=== PATIENT | female | born 1985 ===

== ENCOUNTER 2017-12-25 19:55 | Emergency (ER) | payer MEDICAID ==
--- NOTE | 2017-12-25 20:40 | ED PDOC ---
Arrival/HPI - General Chief Complaint: Groin Pain Time Seen by Provider: 12/25/17 20:27 Historian: Patient - History of Present Illness Narrative History of Present Illness (Text): 12/25/17 20:37 32-year-old female presents today with a sharp pain to the left side of the vagina. Patient states pain started yesterday. Patient states she's noticed slight swelling to the area. Patient denies fevers or chills. Denies vaginal bleeding or vaginal discharge. Patient denies abdominal pain. No nausea or vomiting. Patient denies urinary symptoms. No fevers or chills. Patient denies vaginal lesions.No other complaints Time/Duration: Other (yesterday) Symptom Onset: Sudden Symptom Course: Unchanged Quality: Aching, Stabbing Severity Level: 4 Past Medical History - Provider Review Nursing Documentation Reviewed: Yes - Travel History Have you recently traveled outside [place] w/in the past 3 mons?: No - Infectious Disease Hx of Infectious Diseases: None - Psychiatric Hx Substance Use: No Family/Social History - Physician Review Nursing Documentation Reviewed: Yes Family/Social History: Unknown Family HX Smoking Status: Never Smoked Hx Alcohol Use: No Hx Substance Use: No Allergies/Home Meds Allergies/Adverse Reactions: Allergies No Known Allergies Allergy (Verified 12/25/17 20:11) Review of Systems - Review of Systems Constitutional: absent: Fatigue, Fevers Respiratory: absent: SOB, Cough Cardiovascular: absent: Chest Pain, Palpitations Gastrointestinal: absent: Abdominal Pain, Nausea, Vomiting Genitourinary Female: absent: Dysuria, Frequency, Hematuria, Vaginal Bleeding, Vaginal Discharge Musculoskeletal: absent: Arthralgias, Back Pain, Neck Pain Skin: absent: Pruritis Neurological: absent: Headache, Dizziness Psychiatric: absent: Anxiety, Depression Physical Exam Vital Signs Reviewed: Yes Temperature: Afebrile Blood Pressure: Normal Pulse: Regular Respiratory Rate: Normal Appearance: Positive for: Well-Appearing, Non-Toxic, Comfortable Pain Distress: None Mental Status: Positive for: Alert and Oriented X 3 - Systems Exam Head: Present: Atraumatic Mouth: Present: Moist Mucous Membranes Neck: Present: Normal Range of Motion Respiratory/Chest: Present: Clear to Auscultation, Good Air Exchange. No: Respiratory Distress, Accessory Muscle Use Cardiovascular: Present: Regular Rate and Rhythm, Normal S1, S2. No: Murmurs Abdomen: No: Tenderness, Distention, Rebound, Guarding Genitourinary/Pelvic Exam: Present: Other (chaparoned by Nura GUAJARDO EMT). No: Normal External Genitalia (+ ttp over inferior aspect of the left side of the labia approxiately at the location of the bartholins gland. no erythema; no fluctuance. no swelling. ), Vaginal Discharge, Vaginal Bleeding, Vaginal Lesions , Adenexal Tenderness, Adenexal Mass, Cervical Motion Tendernes, Odor Back: Present: Normal Inspection. No: CVA Tenderness, Midline Tenderness, Paraspinal Tenderness Upper Extremity: Present: Normal ROM Lower Extremity: Present: Normal ROM Neurological: Present: GCS=15, Speech Normal Skin: Present: Warm, Dry, Normal Color. No: Rashes Psychiatric: Present: Alert, Oriented x 3 Medical Decision Making ED Course and Treatment: 12/25/17 20:56 32yr old female with 1 day history of sharp pain to the left lower labia approximately at the bartholins gland. no abscess/cyst noted at present time. vitals stable. pt in no distress. will start patient on abx. advised f/u with [employer]. advised immediate return if symptoms worsen,persist or if new symptoms develop. bactrim keflex toradol Patient verbalizes understanding of discharge instructions and need for immediate followup. all aspects of this case were discussed the attending of record. Impression: Vaginal irritation, Rule out Bartholin's gland early abscess/cyst Motrin every 6 hours as needed for pain Bactrim 1 tablet twice daily 7 days Keflex; 1 capsule 4 times daily 7 days warm soaks/sitz bath Follow-up with the scrap baler within the next 2 days Return immediately if symptoms worsen persist or if new concerning symptoms develop Disposition/Present on Arrival - Present on Arrival Any Indicators Present on Arrival: No History of DVT/PE: No History of Uncontrolled Diabetes: No Urinary Catheter: No History of Decub. Ulcer: No History Surgical Site Infection Following: None - Disposition Have Diagnosis and Disposition been Completed?: Yes Diagnosis: Inflammation of labium, Pain in vulva Disposition: HOME/ ROUTINE Disposition Time: 21:07 Patient Plan: Discharge Condition: GOOD Discharge Instructions (ExitCare): Bartholin's Gland Cyst Additional Instructions: Motrin every 6 hours as needed for pain Bactrim 1 tablet twice daily 7 days Keflex; 1 capsule 4 times daily 7 days warm soaks/sitz bath Follow-up with the scrap baler within the next 2 days Return immediately if symptoms worsen persist or if new concerning symptoms develop Prescriptions: Cephalexin [Keflex] 500 mg PO QID #28 capsule Ibuprofen [Motrin] 600 mg PO Q6H PRN #20 tab PRN Reason: pain/fever reduction Sulfamethoxazole/Trimethoprim [Bactrim DS 800 mg-160 mg] 1 tab PO BID #14 tab Referrals: Princess Casarez MD [Primary Care Provider] - Follow up with primary Manas Tyson DO [Staff Provider] - Follow up with primary Lorenzo Marroquin MD [Staff Provider] - Follow up with primary Travis Sepulveda MD [Staff Provider] - [facility] [Outside] - Follow up with primary Forms: [employer] (Romanian), WORK NOTE
[2017-12-25 20:58] VITALS: BP 128/78; PULSE 66; RESP 17; O2SAT 100
[2017-12-25] MEDS ORDERED: Tmp-Smz 800 mg-160 mg DS Tab PO STA (20:59)
[2017-12-26 02:01] VITALS: TEMP 98.4
== END 2017-12-25 21:35 | disposition home or self-care (01) ==
LOC: ED 19:55
DX: N76.0 Acute vaginitis (principal); R10.2 Pelvic and perineal pain
CPT/HCPCS: 96372; 99285; J1885

== ENCOUNTER 2018-08-27 14:27 | Emergency (ER) | payer MEDICAID, OTHER ==
[2018-08-27 14:40] VITALS: BMI 22.6
[2018-08-27 14:44] VITALS: RESP 16; O2SAT 99
--- NOTE | 2018-08-27 15:06 | ED PDOC ---
Arrival/HPI - General Chief Complaint: Female Genitourinary Time Seen by Provider: 08/27/18 14:53 Historian: Patient - History of Present Illness Narrative History of Present Illness (Text): 08/27/18 15:05 32 year old female, who presents to the emergency department complaining of abscess on the left perineum region, since yesterday. Patient denies drainage. LNMP was 5 days ago. She denies fevers, chills, headache, dizziness, chest pain, shortness of breath, dyspnea on exertion, cough, abdominal pain, nausea, vomiting, diarrhea, back pain, neck pain, or any other complaint. Symptom Course: Unchanged Activities at Onset: Light Context: Home Past Medical History - Provider Review Nursing Documentation Reviewed: Yes - Infectious Disease Hx of Infectious Diseases: None - Psychiatric Hx Substance Use: No - Anesthesia Hx Anesthesia: No Family/Social History - Physician Review Nursing Documentation Reviewed: Yes Family/Social History: No Known Family HX Smoking Status: Never Smoked Hx Alcohol Use: No Hx Substance Use: No Allergies/Home Meds Allergies/Adverse Reactions: Allergies No Known Allergies Allergy (Verified 07/02/18 10:37) Review of Systems - Physician Review All systems were reviewed & negative as marked: Yes - Review of Systems Constitutional: absent: Fevers Respiratory: absent: Cough Gastrointestinal: absent: Abdominal Pain, Diarrhea, Nausea Genitourinary Female: absent: Vaginal Bleeding, Vaginal Discharge Musculoskeletal: absent: Back Pain, Neck Pain Skin: Abscess (left perineum region) Neurological: absent: Headache, Dizziness Physical Exam Vital Signs Reviewed: Yes Vital Signs Temp Pulse Resp BP Pulse Ox 08/27/18 14:28 99 F 88 16 133/73 99 Temperature: Afebrile Blood Pressure: Normal Pulse: Regular Respiratory Rate: Normal Appearance: Positive for: Well-Appearing, Non-Toxic, Comfortable Pain Distress: None Mental Status: Positive for: Alert and Oriented X 3 - Systems Exam Head: Present: Atraumatic, Normocephalic Pupils: Present: PERRL Extroacular Muscles: Present: EOMI Conjunctiva: Present: Normal Mouth: Present: Moist Mucous Membranes Neck: Present: Normal Range of Motion Respiratory/Chest: Present: Clear to Auscultation, Good Air Exchange. No: Respiratory Distress, Accessory Muscle Use Cardiovascular: Present: Regular Rate and Rhythm, Normal S1, S2. No: Murmurs Abdomen: No: Tenderness, Distention, Peritoneal Signs Back: Present: Normal Inspection Upper Extremity: Present: Normal Inspection. No: Cyanosis, Edema Lower Extremity: Present: Normal Inspection. 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 No: Rashes Psychiatric: Present: Alert, Oriented x 3, Normal Insight, Normal Concentration Medical Decision Making ED Course and Treatment: 08/27/18 15:05 Impression: 32 year old female who presents to the emergency department complaining of abscess in the left perineum region. Plan: -- Reassess and disposition Prior Visits: Notes and results from previous visits were reviewed. Progress Notes: 08/27/18 16:06 Patient will be discharged home with clindamycin, Motrin, and was instructed to peform warm compresses 3 times a day to the area. Instructed patient to follow up with MAINTENANCE RE[employer] credit [employer] examiner DR. Marroquin or return to the ER if symptoms worsen. Patient agrees with plan. Patient stable for discharge. All questions answered. - Scribe Statement The provider has reviewed the documentation as recorded by the Scribe Toyin Wong Provider Scribe Attestation: All medical record entries made by the Scribe were at my direction and personally dictated by me. I have reviewed the chart and agree that the record accurately reflects my personal performance of the history, physical exam, medical decision making, and the department course for this patient. I have also personally directed, reviewed, and agree with the discharge instructions and disposition. Disposition/Present on Arrival - Present on Arrival History of DVT/PE: No History of Uncontrolled Diabetes: No Urinary Catheter: No History of Decub. Ulcer: No History Surgical Site Infection Following: None - Disposition Diagnosis: Abscess Disposition: HOME/ ROUTINE Condition: GOOD Discharge Instructions (ExitCare): Skin Abscess Additional Instructions: Follow up with Dr Marroquin as soon as possible. Take Motrin and clindamycin as directed Apply warm compress three times a day Prescriptions: Clindamycin [Cleocin] 300 mg PO QID 7 Days #28 cap Ibuprofen [Motrin] 600 mg PO Q6 5 Days #20 tab Referrals: Lorenzo Marroquin MD [Staff Provider] - Follow up with primary Forms: [employer] (Paraguayan)
[2018-08-27 16:45] VITALS: BP 103/74; PULSE 80; TEMP 98.3
== END 2018-08-27 16:40 | disposition home or self-care (01) ==
LOC: ED 14:27
DX: L02.215 Cutaneous abscess of perineum (principal)

== ENCOUNTER 2018-12-29 10:09 | Emergency (ER) | payer OTHER ==
[2018-12-29 10:22] VITALS: BMI 23.5
[2018-12-29 10:23] VITALS: RESP 18; TEMP 98.5; O2SAT 99
[2018-12-29 11:37] LABS: BASO # 0.02 K/mm3 (0.0-2.0); BASO % 0.2 % (0.0-3.0); EOS % 0.1 % (1.5-5.0); HEMOGLOBIN 12.4 g/dL (12.0-16.0); LYMPH # 3.3 (1.2-3.4); MEAN CELL VOLUME 91.7 fl (80.0-105.0); MEAN CORPUSCULAR HEMOGLOBIN 30.3 pg (25.0-35.0); MEAN CORPUSCULAR HGB CONC 33.1 g/dl (31.0-37.0); MEAN PLATELET VOLUME 9.5 fl (7.0-11.0); MONO # 0.6 (0.1-0.6); MONO % 5.4 % (1.0-6.0); RBC 4.09 10^6/uL (3.5-6.1); RED CELL DISTRIBUTION WIDTH 12.7 % (11.5-14.5); WHITE BLOOD COUNT 11.7 10^3/uL (4.5-11.0)
[2018-12-29 11:41] LABS: PH,URINE 6.5 (4.7-8.0); URINE BILIRUBIN NEGATIVE (NEGATIVE); URINE BLOOD NEGATIVE (NEGATIVE); URINE GLUCOSE (UA) NEGATIVE (NEGATIVE); URINE LEUKOCYTE ESTERASE TRACE Leu/uL (NEGATIVE); URINE PROTEIN NEGATIVE mg/dL (<30 mg/dL); URINE UROBILINOGEN 0.2 E.U./dL (<1 E.U./dL)
[2018-12-29 11:42] LABS: URINE APPEARANCE CLEAR (CLEAR); URINE COLOR YELLOW (YELLOW)
[2018-12-29 11:46] LABS: ALB/GLOB RATIO 1.1 (1.1-1.8); ALBUMIN 4.3 g/dL (3.0-4.8); ALT/SGPT 18 U/L (7-56); AST/SGOT 21 U/L (14-36); BLOOD UREA NITROGEN 14 mg/dL (7-21); CALCIUM 9.1 mg/dL (8.4-10.5); GFR NON-AFRICAN AMERICAN > 60
[2018-12-29 11:47] LABS: URINE RBC 0 - 2 /hpf (0-2)
[2018-12-29 11:48] LABS: URINE BACTERIA MANY /hpf
--- NOTE | 2018-12-29 11:58 | ED PDOC ---
Arrival/HPI - General Chief Complaint: GI Problem Time Seen by Provider: 12/29/18 10:10 Historian: Patient - History of Present Illness Narrative History of Present Illness (Text): 33 year old F w/ no significant PMH presenting to the Emergency Room with 1 day history of epigastric abdominal pain. She reports associated watery diarrhea, nausea and emesis after ingesting a egg and potato sandwich yesterday. She denies taking any medication for her symptoms and denies any radiation of her abdominal pain to other regions of her body. She reports her LMP on 12/19/18. She denies chest pain, shortness of breath, dizziness, syncopal episodes, neck pain, back pain, dysuria, or hematuria at this time. Time/Duration: 24 hours Symptom Onset: Gradual Symptom Course: Unchanged Quality: Aching Activities at Onset: Eating Context: Home Past Medical History - Provider Review Nursing Documentation Reviewed: Yes - Travel History Have you recently traveled outside [place] w/in the past 3 mons?: No - Infectious Disease Hx of Infectious Diseases: None - Psychiatric Hx Substance Use: No - Anesthesia Hx Anesthesia: No Family/Social History - Physician Review Nursing Documentation Reviewed: Yes Family/Social History: Unknown Family HX Smoking Status: Never Smoked Hx Alcohol Use: No Hx Substance Use: No Allergies/Home Meds Allergies/Adverse Reactions: Allergies No Known Allergies Allergy (Verified 12/29/18 10:22) Review of Systems - Physician Review All systems were reviewed & negative as marked: Yes - Review of Systems Gastrointestinal: Abdominal Pain, Diarrhea, Nausea, Vomiting. absent: Stool Changes Genitourinary Female: absent: Dysuria, Frequency, Hematuria Physical Exam Vital Signs Reviewed: Yes Vital Signs Temp Pulse Resp BP Pulse Ox 12/29/18 10:23 98.5 F 62 18 118/82 99 Temperature: Afebrile Blood Pressure: Normal Pulse: Regular Respiratory Rate: Normal Appearance: Positive for: Well-Appearing, Non-Toxic, Comfortable Mental Status: Positive for: Alert and Oriented X 3 - Systems Exam Head: Present: Atraumatic, Normocephalic Pupils: Present: PERRL Extroacular Muscles: Present: EOMI Conjunctiva: Present: Normal Mouth: Present: Moist Mucous Membranes Neck: Present: Normal Range of Motion Respiratory/Chest: Present: Clear to Auscultation, Good Air Exchange. No: Respiratory Distress Cardiovascular: Present: Regular Rate and Rhythm, Normal S1, S2 Abdomen: Present: Tenderness (epigastric tenderness), Normal Bowel Sounds. No: Distention, Peritoneal Signs Neurological: Present: Speech Normal, Motor Func Grossly Intact, Normal Sensory Function Psychiatric: Present: Alert, Oriented x 3, Normal Insight, Normal Concentration Medical Decision Making ED Course and Treatment: 12/29/18 12:01 Impression 33 year old F w/ 1 day h/o abdominal pain, nausea, emesis and diarrhea Plan --Labs --Reglan --Toradol --Urinanlysis --POC urine --Reassess & disposition Progress Notes - Lab Interpretations Lab Results: Total Bilirubin 0.4 mg/dL (0.2-1.3) 12/29/18 11:08 AST 21 U/L (14-36) 12/29/18 11:08 ALT 18 U/L (7-56) 12/29/18 11:08 Alkaline Phosphatase 63 U/L (38-126) 12/29/18 11:08 Total Protein 8.0 g/dL (5.8-8.3) 12/29/18 11:08 Albumin 4.3 g/dL (3.0-4.8) 12/29/18 11:08 Globulin 3.8 gm/dL 12/29/18 11:08 Albumin/Globulin Ratio 1.1 (1.1-1.8) 12/29/18 11:08 Urine Color Yellow (YELLOW) 12/29/18 11:15 Urine Appearance Clear (CLEAR) 12/29/18 11:15 Urine pH 6.5 (4.7-8.0) 12/29/18 11:15 Ur Specific [place] 1.020 (1.005-1.035) 12/29/18 11:15 Urine Protein Negative mg/dL (<30 mg/dL) 12/29/18 11:15 Urine Glucose (UA) Negative mg/dL (NEGATIVE) 12/29/18 11:15 Urine Ketones Negative mg/dL (NEGATIVE) 12/29/18 11:15 Urine Blood Negative (NEGATIVE) 12/29/18 11:15 Urine Nitrate Negative (NEGATIVE) 12/29/18 11:15 Urine Bilirubin Negative (NEGATIVE) 12/29/18 11:15 Urine Urobilinogen 0.2 E.U./dL (<1 E.U./dL) 12/29/18 11:15 Ur Leukocyte Esterase Trace Caitlyn/uL (NEGATIVE) H 12/29/18 11:15 Urine RBC 0 - 2 /hpf (0-2) 12/29/18 11:15 Urine WBC 2 - 5 /hpf (0-6) 12/29/18 11:15 Ur Epithelial Cells 6 - 8 /hpf (0-5) H 12/29/18 11:15 Urine Bacteria Many /hpf (NONE) 12/29/18 11:15 12/29/18 11:08 12/29/18 11:08 Lab Results 12/29/18 11:15: Urine Color Yellow, Urine Appearance Clear, Urine pH 6.5, Ur Specific [place] 1.020, Urine Protein Negative, Urine Glucose (UA) Negative, Urine Ketones Negative, Urine Blood Negative, Urine Nitrate Negative, Urine Bilirubin Negative, Urine Urobilinogen 0.2, Ur Leukocyte Esterase Trace H, Urine RBC 0 - 2, Urine WBC 2 - 5, Ur Epithelial Cells 6 - 8 H, Urine Bacteria Many 12/29/18 11:08: WBC 11.7 H, RBC 4.09, Hgb 12.4, Hct 37.5, MCV 91.7, MCH 30.3, MCHC 33.1, RDW 12.7, Plt Count 335, MPV 9.5, Neut % (Auto) 66.3, Lymph % (Auto) 28.0, [place] % (Auto) 5.4, Eos % (Auto) 0.1 L, Baso % (Auto) 0.2, Lymph # (Auto) 3.3, [place] # (Auto) 0.6, Eos # (Auto) 0.0, Baso # (Auto) 0.02, Absolute Neuts (auto) 7.74 H 12/29/18 11:08: Sodium 134, Potassium 4.1, Chloride 100, Carbon Dioxide 26, Anion Gap 13, BUN 14, Creatinine 0.5 L, Est GFR ( Amer) > 60, Est GFR (Non-Af Amer) > 60, Random Glucose 97, Calcium 9.1, Total Bilirubin 0.4, AST 21, ALT 18, Alkaline Phosphatase 63, Total Protein 8.0, Albumin 4.3, Globulin 3.8, Albumin/Globulin Ratio 1.1 I have reviewed the lab results: Yes - Medication Orders Current Medication Orders: Discontinued Medications Ketorolac Tromethamine (Toradol) 30 mg IVP STAT STA Stop: 12/29/18 11:11 Last Admin: 12/29/18 11:33 Dose: 30 mg MAR Pain Assessment Document 12/29/18 11:33 [facility] (Rec: 12/29/18 11:33 [id number] Pain Reassessment Is this a pain reassessment? No Sleep Is patient sleeping during reassessment? No Presence of Pain Presence of Pain Yes IVP Administration Document 12/29/18 11:33 [facility] (Rec: 12/29/18 11:33 [id number] Charges for Administration # of IVP Administrations 1 Metoclopramide HCl (Reglan) 10 mg IVP STAT STA Stop: 12/29/18 11:11 Last Admin: 12/29/18 11:33 Dose: 10 mg IVP Administration Document 12/29/18 11:33 [facility] (Rec: 12/29/18 11:33 [id number] Charges for Administration # of IVP Administrations 1 Disposition/Present on Arrival - Present on Arrival Any Indicators Present on Arrival: No History of DVT/PE: No History of Uncontrolled Diabetes: No Urinary Catheter: No History of Decub. Ulcer: No History Surgical Site Infection Following: None - Disposition Have Diagnosis and Disposition been Completed?: Yes Diagnosis: Gastroenteritis Disposition: HOME/ ROUTINE Disposition Time: 12:02 Patient Plan: Discharge Condition: IMPROVED Discharge Instructions (ExitCare): Gastroenteritis (ED) Print Language: BULGARIAN Additional Instructions: Please follow up in clinic in 1 week Please take medications as prescribed Prescriptions: Metoclopramide HCl [Reglan] 10 mg PO Q6H #10 tablet Naproxen 500 mg PO BID #10 tab Referrals: Daisha Mann MD [Medical Doctor] - Follow up with primary [facility] [Outside] - Follow up with primary Forms: [employer] (Armenian), WORK NOTE
[2018-12-29 12:49] VITALS: BP 112/77; PULSE 76
== END 2018-12-29 13:10 | disposition home or self-care (01) ==
LOC: ED 10:09
DX: K52.9 Noninfective gastroenteritis and colitis, unspecified (principal)
CPT/HCPCS: 80053; 81001; 81025; 85025; 87086; 96374; 96375; 99283; J1885; J2765

== ENCOUNTER 2018-12-30 07:16 | Emergency (ER) | payer OTHER ==
[2018-12-30 07:17] VITALS: BMI 23.5
[2018-12-30] MEDS ORDERED: Sodium Chloride 0.9% 1,000 ML IV STA (07:46)
--- NOTE | 2018-12-30 07:49 | ED PDOC ---
Arrival/HPI - General Chief Complaint: Abdominal Pain Time Seen by Provider: 12/30/18 07:18 Historian: Patient - History of Present Illness Narrative History of Present Illness (Text): 12/30/18 07:46 33 year old F w/ no significant PMH presents complaining of 1 day history of epigastric abdominal pain w/ continuous vomiting and diarrhea. She reports associated watery diarrhea, nausea and non-bloody emesis after ingesting a egg and potato sandwich 2 days ago. She denies taking any medication for her symptoms and denies any radiation of her abdominal pain to other regions of her body. She reports her LMP on 12/19/18. She denies chest pain, shortness of breath, dizziness, syncopal episodes, neck pain, back pain, dysuria, or hematuria at this time. Time/Duration: 24 hours Symptom Onset: Sudden Symptom Course: Unchanged Activities at Onset: Light Context: Home Past Medical History - Provider Review Nursing Documentation Reviewed: Yes - Infectious Disease Hx of Infectious Diseases: None - Reproductive Menopause: No - Psychiatric Hx Psychophysiologic Disorder: No Hx Substance Use: No - Anesthesia Hx Anesthesia: No Family/Social History - Physician Review Nursing Documentation Reviewed: Yes Family/Social History: Unknown Family HX Smoking Status: Never Smoked Hx Alcohol Use: No Hx Substance Use: No Allergies/Home Meds Allergies/Adverse Reactions: Allergies No Known Allergies Allergy (Verified 12/29/18 10:22) Review of Systems - Physician Review All systems were reviewed & negative as marked: Yes - Review of Systems Constitutional: absent: Fevers ENT: absent: Sore Throat, Rhinorrhea, Epistaxis Gastrointestinal: Abdominal Pain, Diarrhea, Nausea, Vomiting. absent: Hemat ochezia, Hematemesis Genitourinary Female: absent: Dysuria, Hematuria Musculoskeletal: absent: Arthralgias, Back Pain, Myalgias Skin: absent: Rash, Laceration, Cellulitis Neurological: absent: Headache, Dizziness, Speech Changes, Disequilibrium Physical Exam Vital Signs Reviewed: Yes Vital Signs Temp Pulse Resp BP Pulse Ox 12/30/18 07:35 98.4 F 67 18 135/83 98 Temperature: Afebrile Blood Pressure: Normal Pulse: Regular Respiratory Rate: Normal Appearance: Positive for: Well-Appearing, Non-Toxic, Comfortable Pain Distress: Mild Mental Status: Positive for: Alert and Oriented X 3 Medical Decision Making ED Course and Treatment: 12/30/18 07:50 Impression: 33 year old F presents complaining of 1 day history of epigastric abdominal pain w/ continuous vomiting and diarrhea. Plan: -- Abd & Pelvis IV contrast -- Labs -- Toradol -- Reglan -- Reassess and disposition Prior Visits: Notes and results from previous visits were reviewed. Progress Notes: 12/30/18 09:25 Mild leukocytosis of 12.5 elevated in comparison to yesterday. Electrolytes unremarkable. Patient currently at CT scan. 12/30/18 10:52 CT scan demonstrates no intraabdominal pathology, but reveals bilateral ovarian cysts with free fluid. 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 She acknowledges and is stable for discharge. - Lab Interpretations Lab Results: 12/30/18 08:08 12/30/18 08:26 Lab Results 12/30/18 08:26: Sodium 135, Potassium 5.0, Chloride 100, Carbon Dioxide 26, Anion Gap 14, BUN 11, Creatinine 0.5 L, Est GFR ( Amer) > 60, Est GFR (Non-Af Amer) > 60, Random Glucose 108, Calcium 9.4, Total Bilirubin 0.3, AST 20, ALT 26, Alkaline Phosphatase 70, Total Protein 7.2, Albumin 3.9, Globulin 3.3, Albumin/Globulin Ratio 1.2 12/30/18 08:08: WBC 12.3 H, RBC 3.97, Hgb 12.2, Hct 36.0, MCV 90.7, MCH 30.7, MCHC 33.9, RDW 12.5, Plt Count 333, MPV 9.7, Neut % (Auto) 67.9, Lymph % (Auto) 23.7, Clay % (Auto) 8.2 H, Eos % (Auto) 0.1 L, Baso % (Auto) 0.1, Lymph # (Auto) 2.9, [place] # (Auto) 1.0 H, Eos # (Auto) 0.0, Baso # (Auto) 0.01, Absolute Neuts (auto) 8.35 H I have reviewed the lab results: Yes - RAD Interpretation Narrative RAD Interpretations (Text): 12/30/18 10:32 CT Abdomen and Pelvis with contrast -- No acute intra-abdominal findings. 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 I have reviewed the chart and agree that the record accurately reflects my personal performance of the history, physical exam, medical decision making, and the department course for this patient. I have also personally directed, reviewed, and agree with the discharge instructions and disposition. Disposition/Present on Arrival - Present on Arrival Any Indicators Present on Arrival: No History of DVT/PE: No History of Uncontrolled Diabetes: No Urinary Catheter: No History of Decub. Ulcer: No History Surgical Site Infection Following: None - Disposition Have Diagnosis and Disposition been Completed?: Yes Diagnosis: Ovarian cyst Disposition: HOME/ ROUTINE Disposition Time: 10:52 Patient Plan: Discharge Discharge Instructions (ExitCare): Ovarian Cyst (DC) Print Language: VIETNAMESE Additional Instructions: All medical record entries made by the Scribe were at my direction and personally dictated by me. I have reviewed the chart and agree that the record accurately reflects my personal performance of the history, physical exam, medical decision making, and the department course for this patient. I have also personally directed, reviewed, and agree with the discharge instructions and disposition. Please follow up with your UNIVERSITY SERVICES PROGRAM ASSOCIATE regarding your diagnosis Referrals: Ian Mason MD [Medical Doctor] - Follow up with primary Forms: [employer] (Eritrean), WORK NOTE
[2018-12-30 07:58] VITALS: RESP 18; TEMP 98.4
[2018-12-30 08:19] LABS: BASO # 0.01 K/mm3 (0.0-2.0); BASO % 0.1 % (0.0-3.0); EOS % 0.1 % (1.5-5.0); HEMOGLOBIN 12.2 g/dL (12.0-16.0); LYMPH # 2.9 (1.2-3.4); LYMPH % 23.7 % (22.0-35.0); MEAN CELL VOLUME 90.7 fl (80.0-105.0); MEAN CORPUSCULAR HEMOGLOBIN 30.7 pg (25.0-35.0); MEAN CORPUSCULAR HGB CONC 33.9 g/dl (31.0-37.0); MEAN PLATELET VOLUME 9.7 fl (7.0-11.0); MONO % 8.2 % (1.0-6.0); RBC 3.97 10^6/uL (3.5-6.1); RED CELL DISTRIBUTION WIDTH 12.5 % (11.5-14.5); WHITE BLOOD COUNT 12.3 10^3/uL (4.5-11.0)
[2018-12-30 08:48] LABS: ALB/GLOB RATIO 1.2 (1.1-1.8); ALBUMIN 3.9 g/dL (3.0-4.8); ALT/SGPT 26 U/L (7-56); AST/SGOT 20 U/L (14-36); BLOOD UREA NITROGEN 11 mg/dL (7-21); CALCIUM 9.4 mg/dL (8.4-10.5); GFR NON-AFRICAN AMERICAN > 60
[2018-12-30] MEDS ORDERED: Iohexol 350 MG/100 ML VIAL ONE (09:09)
[2018-12-30 10:00] VITALS: PULSE 53; O2SAT 100
[2018-12-30 10:03] VITALS: BP 120/74
--- NOTE | 2018-12-30 10:22 | CT ---
Date of service: 12/30/2018 PROCEDURE: CT Abdomen and Pelvis with contrast HISTORY: abdominal pain COMPARISON: None. TECHNIQUE: Contrast dose: 100 cc of Omni 350 Radiation dose: Total exam DLP = 307.99 mGy-cm. This CT exam was performed using one or more of the following dose reduction techniques: Automated exposure control, adjustment of the mA and/or kV according to patient size, and/or use of iterative reconstruction technique. FINDINGS: LOWER THORAX: Unremarkable. LIVER: Unremarkable. No gross lesion or ductal dilatation. GALLBLADDER AND BILE DUCTS: Unremarkable. PANCREAS: Unremarkable. No gross lesion or ductal dilatation. SPLEEN: Unremarkable. ADRENALS: Unremarkable. No mass. KIDNEYS AND URETERS: Unremarkable. No hydronephrosis. No solid mass. VASCULATURE: Unremarkable. No aortic aneurysm. No aortic atherosclerotic calcification or mural plaque present. BOWEL: Unremarkable. No obstruction. No gross mural thickening. APPENDIX: Normal appendix. PERITONEUM: Moderate free fluid in the pelvis. LYMPH NODES: Unremarkable. No enlarged lymph nodes. BLADDER: Unremarkable. REPRODUCTIVE: Bilateral ovarian cysts. BONES: No acute fracture. OTHER FINDINGS: None. IMPRESSION: No acute intra-abdominal findings. Bilateral ovarian cysts and free fluid in the cul-de-sac
== END 2018-12-30 11:42 | disposition home or self-care (01) ==
LOC: ED 07:16
DX: N83.201 Unspecified ovarian cyst, right side (principal); N83.202 Unspecified ovarian cyst, left side
CPT/HCPCS: 74177; 80053; 81025; 85025; 96374; 96375; 99284; J1885; J2765; J7030; Q9967